=== PATIENT | male | born 1990 | race African-American/Black ===

== ENCOUNTER 2016-11-21 16:59 | Emergency (ER) | payer OTHER ==
[~2016-11-21] VITALS: Ht 167.6 cm; Wt 57.6 kg
[2016-11-21 16:59] VITALS: BP 136/91
[2016-11-21] MEDS ORDERED: AFRIN15 ML NS (17:48)
[2016-11-21] MEDS ORDERED: PREDNISONE 20 M20 MG PO (17:48)
== END 2016-11-21 17:57 | disposition home or self-care (01) ==
LOC: ER 16:59
DX: J06.9 Acute upper respiratory infection, unspecified (principal); F17.210 Nicotine dependence, cigarettes, uncomplicated; F10.99 Alcohol use, unspecified with unspecified alcohol-induced disorder